=== PATIENT | male | born 1965 | race Caucasian/White ===

== ENCOUNTER 2021-04-30 21:59 | Emergency (ER) | payer MEDICARE, SELFPAY ==
[2021-04-30 22:00] VITALS: BP 133/93; PULSE 63; RESP 18; TEMP 37; O2SAT 96; BMI 34.0
[2021-04-30 23:13] VITALS: BP 133/93; PULSE 63; RESP 18; TEMP 37; O2SAT 96
--- NOTE | 2021-04-30 23:16 | PC.NURSE ---
Addendum entered by Briana Stark RN 04/30/21 23:24: Per , patient should be listed as left without being seen as opposed to AMA. Changes made. Original Note: Patient chose to leave ama. It was explained to the patient that his toe nail would need to be removed due to injury and local numbing medication would be given via injections around the toe nail . Patient became nervous and stated that he didn't like needles. Patient continued to wait for several minutes until he finally told this nurse that he couldn't have injections on his toes due to his anxiety about needles. 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 Patient states he understands and just assumes see his gun stock maker. No IV was started. No medications were given. Patient signed ama form and ambulated independently out of the emergency room.
== END 2021-04-30 23:26 | disposition left against medical advice (07) ==
PROVIDERS: Emergency Provider Emergency Medicine; PCP Family Medicine
DX: Z53.21 Procedure and treatment not carried out due to patient leaving prior to being seen by health care provider (principal)
CPT/HCPCS: 99211

== ENCOUNTER → 2021-05-01 17:22 | Outpatient (CLI) | payer MEDICARE, SELFPAY | PROVIDERS: Visit Provider Podiatrist | DX: S91.202A Unspecified open wound of left great toe with damage to nail, initial encounter (principal) | CPT/HCPCS: 87070; 87077; 87186; 87205 ==

== ENCOUNTER → 2021-05-04 10:13 | Outpatient (CLI) | payer MEDICARE, SELFPAY ==
--- NOTE | 2021-05-04 | US_ITS ---
APPROVED REPORT Exam Type: Ankle to Brachial Index Software Tools Developer: Kacie Sharp CRT Indications Claudication: Current Smoker CAD Risk Factors Hypertension Hyperlipidemia Obesity Cardiac Disease Diabetes Current Smoker Pressures/Indices Right Indices Left Indices Brachial 152.00 mmHg Brachial 159.00 mmHg Low Thigh 157.00 mmHg 0.99 Low Thigh 159.00 mmHg 1.00 Calf 168.00 mmHg 1.06 Calf 112.00 mmHg 0.70 Ankle(PT) 156.00 mmHg 0.98 Ankle(PT) 114.00 mmHg 0.72 Ankle(DP) 160.00 mmHg 1.01 Ankle(DP) 113.00 mmHg 0.71 Digit 125.00 mmHg 0.79 Digit 70.00 mmHg 0.44 Findings R FANNIE 1.01 L FANNIE 0.7 R TBI 0.8 L TBI 0.5 Pulses normal Waveforms normal Conclusion R FANNIE 1.01 L FANNIE 0.7 R TBI 0.8 L TBI 0.5 Pulses normal Waveforms normal Low left FANNIE suggesting moderate arterial disease Electronically signed by : Edmundo Robledo MD 05/04/2021 16:13:28
== END ==
PROVIDERS: PCP Family Medicine; Visit Provider Podiatrist
DX: Z72.0 Tobacco use; R09.89 Other specified symptoms and signs involving the circulatory and respiratory systems
CPT/HCPCS: 93923

== ENCOUNTER 2021-05-06 20:42 | Emergency (ER) | payer MEDICARE, SELFPAY ==
[2021-05-06 20:55] VITALS: BP 0/0; PULSE 0; RESP 0; TEMP -17.7; TEMP 0
== END 2021-05-06 20:56 | disposition left against medical advice (07) ==
LOC: UTC 20:44
PROVIDERS: Emergency Provider Nurse Practitioner Family; PCP Family Medicine
DX: Z53.21 Procedure and treatment not carried out due to patient leaving prior to being seen by health care provider (principal)